=== PATIENT | female | born 1945 | race Caucasian/White ===

== ENCOUNTER → 2018-10-10 | Outpatient (CLI) | payer OTHER ==
[~2018-10-10] MED LIST: BUPR150ER PO; GEMF600 PO; HYDACE5 PO; LOSA50 PO; ONDA8 PO; SIMV10 PO; SIMVASTATIN PO
[2018-10-14 14:08] LABS: HPV 16 Negative (Negative); HPV 18 Negative (Negative); HPV OTHER HR TYPES Negative (Negative)
== END | disposition home or self-care (01) ==
LOC: LAB SHORT 15:44 → LAB 15:44
PROVIDERS: Obstetrics & Gynecology Gynecology
DX: Z12.72 Encounter for screening for malignant neoplasm of vagina (principal)
CPT/HCPCS: 87624; G0123

== ENCOUNTER → 2021-07-26 | Outpatient (CLI) | payer OTHER | END | disposition home or self-care (01) | LOC: LAB SHORT 07:57 | DX: D22.5 Melanocytic nevi of trunk (principal) | CPT/HCPCS: 88305 ==

== ENCOUNTER 2023-04-26 19:51 | Emergency (ER) | payer OTHER ==
[~2023-04-26] VITALS: Ht 157.5 cm; Wt 74.8 kg
[2023-04-27] MEDS ORDERED: Lopressor 25 mg25 MG PO (01:50)
[2023-04-27] MEDS ORDERED: OXYC5 PO (01:50)
[2023-04-27 02:00] VITALS: BP 123/103
== END 2023-04-27 02:13 | disposition home or self-care (01) ==
LOC: ER 19:51
DX: M84.421A Pathological fracture, right humerus, initial encounter for fracture (principal); I48.20 Chronic atrial fibrillation, unspecified; M85.621 Other cyst of bone, right upper arm; Z79.899 Other long term (current) drug therapy
CPT/HCPCS: 73060; 93005; 93010; 99283-25; A9270

== ENCOUNTER → 2023-05-22 | Outpatient (CLI) | payer OTHER ==
[~2023-05-22] MED LIST changes: +DILT180 PO; +Lopressor 25 mg25 MG PO; +METO25 PO; +MULVITA PO; +OMEP20ER PO; +OXYC5 PO; +ROSU5 PO; +Vitamin D1000 UNI1 PO
[2023-05-22 17:16] LABS: Creatinine, Urine Random 83.4 mg/dL (27.00-270.00); Microalbumin, Random Urine 56.5 mg/L (0.000-20.000)
== END | disposition home or self-care (01) ==
LOC: LAB 12:55 → LAB SHORT 12:55
PROVIDERS: Physician Assistant
DX: E11.69 Type 2 diabetes mellitus with other specified complication (principal); E11.59 Type 2 diabetes mellitus with other circulatory complications
CPT/HCPCS: 82043; 82570

== ENCOUNTER 2023-05-24 12:45 | Day surgery (SDC) | payer OTHER ==
[~2023-05-24] VITALS: Ht 157.5 cm; Wt 78.3 kg
[2023-05-24] VITALS (34 sets, daily range): BP systolic 103–158; BP diastolic 66–112
--- NOTE | 2023-05-24 13:57 | NUR ---
Arrived to day surgery via . History, Chart, Medications and Allergies reviewed before start of procedure. Patient confirms NPO status and agrees with scheduled surgery. Patient States Post-Procedure ride home has been arranged. Pre-Op teaching done. Pt verbalizes understanding.
--- NOTE | 2023-05-24 14:22 | NUR ---
05/24/23 1422 Giovanny Rivas HISTORY,CHART, MEDICATIONS AND ALLERGIES REVIEWED BEFORE START OF PROCEDURE. PATIENT CONFIRMS NPO STATUS AND AGREES WITH SCHEDULED PROCEDURE. 3-LEAD EKG REVIEWED WITH PHYSICIAN PRIOR TO START OF PROCEDURE. MONITOR INTACT WITH CONTINUOUS PULSE OXIMETRY, 3-LEAD EKG, CAPNOGRAPHY AND INTERMITTENT BP. SUPPLEMENTAL O2 TO BE TITRATED THROUGHOUT PROCEDURE TO MAINTAIN O2 SATURATION ABOVE 90%. PATIENT DETERMINED TO BE ASA APPROPRIATE FOR MODERATE SEDATION PRIOR TO START OF PROCEDURE BY DR. HART.
--- NOTE | 2023-05-24 17:06 | NUR ---
Patient up SBA to wheelchair. Discharge instructions reviewed with patient. Patient verbalizes understanding. Copy given to patient to take home. Patient States Post-Procedure ride home has been arranged. Discharged via wheelchair to private car for ride home.
== END 2023-05-24 23:39 | disposition home or self-care (01) ==
LOC: ORSCMMR 12:45 → ORD 14:00 → ORSCMMR 23:39
PROVIDERS: Student in an Organized Health Care Education/Training Program
PROC: 0B9G8ZX Drainage of Left Upper Lung Lobe, Via Natural or Artificial Opening Endoscopic, Diagnostic (ICD-10-PCS; principal; 2023-05-24 14:00)
PROC: 0BD88ZX Extraction of Left Upper Lobe Bronchus, Via Natural or Artificial Opening Endoscopic, Diagnostic (ICD-10-PCS; principal; 2023-05-24 14:00)
DX: C34.12 Malignant neoplasm of upper lobe, left bronchus or lung (principal); Z87.891 Personal history of nicotine dependence; I48.91 Unspecified atrial fibrillation; K21.9 Gastro-esophageal reflux disease without esophagitis; I10 Essential (primary) hypertension; E78.5 Hyperlipidemia, unspecified; R73.03 Prediabetes; Z79.899 Other long term (current) drug therapy
CPT/HCPCS: 88108; 88305; 88341; 88342; A9270; J0171; J2001; J2250; J3010; J7120

== ENCOUNTER → 2023-05-30 | Outpatient (CLI) | payer OTHER ==
[2023-05-30 20:01] LABS: Creatinine, Urine Random 79.2 mg/dL (27.00-270.00); Microalbumin, Random Urine 49.4 mg/L (0.000-20.000)
== END | disposition home or self-care (01) ==
LOC: LAB 13:51 → LAB SHORT 13:51
PROVIDERS: Physician Assistant
DX: E11.69 Type 2 diabetes mellitus with other specified complication (principal); E11.59 Type 2 diabetes mellitus with other circulatory complications
CPT/HCPCS: 82043; 82570

== ENCOUNTER 2023-06-14 10:17 | Emergency (ER) | payer OTHER ==
[~2023-06-14] VITALS: Ht 157.5 cm; Wt 72.1 kg
[2023-06-14 10:31] VITALS: BP 140/102
[2023-06-17] MEDS ORDERED: OXYC5 (07:59)
== END 2023-06-14 12:33 | disposition home or self-care (01) ==
LOC: ER 10:17
DX: M62.838 Other muscle spasm (principal); Z79.899 Other long term (current) drug therapy; E78.5 Hyperlipidemia, unspecified; I10 Essential (primary) hypertension
CPT/HCPCS: 73090; 99283-25; A9270

== ENCOUNTER 2023-06-17 07:12 | Inpatient (IN) | payer OTHER ==
[~2023-06-17] VITALS: Ht 157.5 cm; Wt 73.0 kg
[2023-06-17 07:51] LABS: BASOPHILS ABSOLUTE AUTO 0.01 K/mm3 (0.00-0.23); BASOPHILS PERCENT AUTO 0 % (0-2); EOSINOPHILS ABSOLUTE AUTO 0.01 K/mm3 (0.00-0.68); EOSINOPHILS PERCENT AUTO 0 % (0-6); Hematocrit 31.9 % (33.0-51.0); Hemoglobin 10.3 g/dL (11.5-16.0); IMMATURE GRAN ABSOLUTE AUTO 0.11 K/mm3 (0.00-0.10); IMMATURE GRAN PERCENT AUTO 1 % (0-1); LYMPHOCYTES ABSOLUTE AUTO 0.62 K/mm3 (0.84-5.20); LYMPHOCYTES PERCENT AUTO 3 % (21-46); MONOCYTES ABSOLUTE AUTO 1.37 K/mm3 (0.16-1.47); MONOCYTES PERCENT AUTO 7 % (4-13); Mean Corpuscular HGB 28.1 pg (26.0-34.0); Mean Corpuscular HGB Conc 32.3 g/dL (31.5-36.5); Mean Corpuscular Volume 87 fL (80-100); NEUTROPHILS PERCENT AUTO 89 % (41-73); Platelet Count 553 K/mm3 (150-400); RDW Coefficient Variation 14.6 % (11.7-14.2); Red Blood Cell Count 3.67 M/mm3 (3.80-5.20); White Blood Cell Count 19.02 K/mm3 (4.00-11.30)
[2023-06-17] MEDS ORDERED: OXYC5 PO (07:59)
[2023-06-17] MEDS ORDERED: DEXA4 (07:59)
[2023-06-17] MEDS ORDERED: HYDROCODONE-AC1 EA19 PO (07:59)
[2023-06-17] MEDS ORDERED: FOLI1 PO (07:59)
[2023-06-17] MEDS ORDERED: TIZANIDINE HCL213 PO (08:00)
[2023-06-17] MEDS ORDERED: GEMFIBROZIL600 MG PO (08:01)
[2023-06-17 08:06] LABS: Bun/Creatinine Ratio 39.5 (12.0-20.0); Creatinine, Blood 0.58 mg/dL (0.40-1.00); Potassium, Blood 3.6 mmol/L (3.5-5.5)
[2023-06-17 11:23] VITALS: BP 154/103
[2023-06-17 12:09] LABS: Source, Urine Foley catheter
[2023-06-17 12:12] LABS: Appearance, Urine Hazy (Clear); Bilirubin, Urine Neg (Neg); Blood, Urine 1+ (Neg); Color, Urine Yellow (P-Yellow); Glucose Qualitative, Urine Neg (Neg); Ketones, Urine Neg (Neg); Leukocyte Esterase, Urine 1+ (Neg); Nitrite, Urine Neg (Neg); Protein, Urine 1+ (Neg); Urobilinogen, Urine NORM (Normal)
[2023-06-17 12:29] LABS: Bacteria Many /hpf; Mucus Light (0-Heavy); Squamous Epithelial Cells Not Seen /hpf (Few)
[2023-06-17 13:54] VITALS: BP 161/103
--- NOTE | 2023-06-17 14:29 | NUR ---
CALL FROM [facility] - RELAYING MESSAGE- PT IS BEING RESCHED UNTIL TOMORROW, PT CAN EAT UNTIL MIDNIGHT.
[2023-06-17 14:34] VITALS: BP 165/103
--- NOTE | 2023-06-17 17:36 | NUR ---
SHIFT SUMMARY PT A&OX4, VSS/RA, CHENTE PO, [place] PATENT & DRAINING/STAT LOCK ON/OFF FLOOR, BEDREST, PAIN MANAGED WITH NORCO AND FENT PER EMAR, PLAN FOR NPO MIDNIGHT AND SURGERY TOMORROW FOR BLE. FAMILY BEDSIDE. WILL REPORT TO ONCOMING NOC RN.
--- NOTE | 2023-06-17 18:15 | NUR ---
TELEPHONE CALL TO DR KIRKLAND R/T PT C/O "NEW NUMBNESS IN R KNEE AND FEELING LIKE R FOOT GOING TO SLEEP" SINCE I PUT ON 5 LB BUCKS TRACTION. STATED TO DO 1 HR ON AND THEN OFF 1-2 HOURS, AND TO DISCONTINUE BUCKS IF STILL HAVING SAME COMPLAINTS.
[2023-06-17 19:13] VITALS: BP 157/100
[2023-06-18] VITALS (7 sets, daily range): BP systolic 97–159; BP diastolic 51–104
--- NOTE | 2023-06-18 04:06 | NUR ---
SHIFT SUMMARY PT REMAINS VERY PAINFUL, ESPECIALLY WITH REPOSITIONING. PT HAS DENIED NUMBNESS TO RIGHT FOOT/THIGH WITH 5# BUCKS TRACTION IN PLACE. 25 MCG IV FENTANYL AND 1 NORCO FOR PAIN MANAGEMENT. JASE REMAINS IN BRACE AND SLING. NPO SINCE MIDNIGHT. [place] PATENT WITH YELLOW URINE. CALL LIGHT WITHIN REACH.
[2023-06-18 04:22] LABS: BASOPHILS ABSOLUTE AUTO 0.02 K/mm3 (0.00-0.23); BASOPHILS PERCENT AUTO 0 % (0-2); EOSINOPHILS ABSOLUTE AUTO 0.01 K/mm3 (0.00-0.68); EOSINOPHILS PERCENT AUTO 0 % (0-6); Hemoglobin 11.2 g/dL (11.5-16.0); IMMATURE GRAN ABSOLUTE AUTO 0.13 K/mm3 (0.00-0.10); IMMATURE GRAN PERCENT AUTO 1 % (0-1); LYMPHOCYTES ABSOLUTE AUTO 0.81 K/mm3 (0.84-5.20); LYMPHOCYTES PERCENT AUTO 4 % (21-46); MONOCYTES ABSOLUTE AUTO 1.59 K/mm3 (0.16-1.47); MONOCYTES PERCENT AUTO 8 % (4-13); Mean Corpuscular Volume 88 fL (80-100); Mean Platelet Volume 9.4 fL (9.1-12.4); NEUTROPHILS PERCENT AUTO 87 % (41-73); Platelet Count 508 K/mm3 (150-400); RDW Coefficient Variation 14.4 % (11.7-14.2); RDW Standard Deviation 46.1 fL (35.1-46.3); White Blood Cell Count 19.76 K/mm3 (4.00-11.30)
[2023-06-18 04:46] LABS: Albumin, Blood 2.8 g/dL (3.4-5.0); Albumin/Globulin Ratio 0.8 (0.8-1.8); Bilirubin, Total 0.6 mg/dL (0.1-1.0); Bun/Creatinine Ratio 22.4 (12.0-20.0); Calcium, Blood 8.5 mg/dL (8.5-10.1); Creatinine, Blood 0.67 mg/dL (0.40-1.00); Globulin, Blood 3.3 g/dL (2.2-4.0); Potassium, Blood 3.3 mmol/L (3.5-5.5); Total Protein, Blood 6.1 g/dL (6.4-8.2)
--- NOTE | 2023-06-18 18:00 | NUR ---
[facility]/INTERNAL FIXATION RIGHT FEMUR. PLAN OF CARE DISCUSSED WITH PT.
--- NOTE | 2023-06-18 18:25 | NUR ---
PT TO DAY SURGERY WITH 22G IV IN LEFT AC
--- NOTE | 2023-06-18 18:49 | NUR ---
REPORT OFF TO Joseph SKINNER RN
--- NOTE | 2023-06-18 19:51 | NUR ---
SHIFT SUMMARY PT A&OX4, VSS/RA, PAIN TREATED PER EMAR, NPO T/O SHIFT, RLE FX IN 5# BUCKS TRACTION/PT DENIED N&T, PADMINI PATENT & DRAINING/STAT LOCK ON/OFF FLOOR. PT IN O.R. REPORT TO MIREYA ADAMES.
--- NOTE | 2023-06-18 23:20 | NUR ---
PT PERSONAL BELONGINGS INCLUDING PURSE, GLASSES, AND RING BROUGHT TO ICU11.
[2023-06-19] VITALS (64 sets, daily range): BP systolic 75–149; BP diastolic 28–134
[2023-06-19 00:53] LABS: Bun/Creatinine Ratio 29.1 (12.0-20.0); Creatinine, Blood 0.65 mg/dL (0.40-1.00); Magnesium, Blood 1.9 mg/dL (1.6-2.4); Potassium, Blood 4.1 mmol/L (3.5-5.5)
--- NOTE | 2023-06-19 01:06 | NUR ---
ASSUMED CARE PT ARRIVED ON UNIT A&O X0; DR CARMONA AND OR NURSE AT BEDSIDE. PT QUICKLY BECAME MORE ORIENTED; IS CURRENTLY A&O TO SELF ONLY. PT NEEDS REPEATED REORIENTATION ON PT'S CURRENT SITUATION AND TO NOT PULL AT LINES/CHORDS. PT ALSO ARRIVED ON UNIT IN AFIB RVR W/ RATE IN THE 150-180'S ON A CARDIZEM GTT. CARDIZEM TITRATED UP TO 15MG/HR; DID NOT APPEAR TO BE EFFECTIVE. DR CARMONA AT BEDSIDE TRIALED ESMOLOL AND STATED THAT HE WOULD LIKE THIS RN TO TALK TO HOSPITALIST AND GET ORDER FOR ESMOLOL GTT. ESMOLOL GTT APPEARS TO BE MORE EFFECTIVE. BILATERAL SURGICAL BANDAGES ARE C/D/I. SPO2 >92% ON 7L NC;RR >12; MAP >65; AFIB RATE IN THE 110-130'S AT TIME OF THIS NOTE.
--- NOTE | 2023-06-19 01:38 | NUR ---
UPDATE PT DENIES PAIN IN RIGHT ARM WHEN AT REST.
[2023-06-19 04:02] LABS: BASOPHILS ABSOLUTE AUTO 0.03 K/mm3 (0.00-0.23); BASOPHILS PERCENT AUTO 0 % (0-2); EOSINOPHILS PERCENT AUTO 0 % (0-6); Hematocrit 29.8 % (33.0-51.0); Hemoglobin 9.4 g/dL (11.5-16.0); IMMATURE GRAN PERCENT AUTO 1 % (0-1); LYMPHOCYTES ABSOLUTE AUTO 0.31 K/mm3 (0.84-5.20); LYMPHOCYTES PERCENT AUTO 1 % (21-46); MONOCYTES PERCENT AUTO 5 % (4-13); Mean Corpuscular HGB 27.8 pg (26.0-34.0); Mean Corpuscular HGB Conc 31.5 g/dL (31.5-36.5); Mean Corpuscular Volume 88 fL (80-100); Mean Platelet Volume 9.4 fL (9.1-12.4); NEUTROPHILS ABSOLUTE AUTO 21.47 K/mm3 (1.96-9.15); NEUTROPHILS PERCENT AUTO 93 % (41-73); Platelet Count 344 K/mm3 (150-400); RDW Coefficient Variation 14.8 % (11.7-14.2); RDW Standard Deviation 47.8 fL (35.1-46.3); Red Blood Cell Count 3.38 M/mm3 (3.80-5.20); White Blood Cell Count 23.21 K/mm3 (4.00-11.30)
[2023-06-19 04:26] LABS: Bun/Creatinine Ratio 30.8 (12.0-20.0); Calcium, Blood 7.7 mg/dL (8.5-10.1); Creatinine, Blood 0.75 mg/dL (0.40-1.00); Magnesium, Blood 1.9 mg/dL (1.6-2.4); Potassium, Blood 4.9 mmol/L (3.5-5.5)
--- NOTE | 2023-06-19 06:23 | NUR ---
SHIFT SUMMARY PT IS A&O TO SELF, SITUATION,YEAR, AND TOWN ([place]). PT THOUGHT SHE WAS IN THE KITCHEN, BUT WAS ABLE TO STATE THAT SHE WAS IN THE HOSPITAL FOR "SOMETHING WITH MY LEG THAT NEEDED SURGERY" WHEN REORIENTING PT THAT SHE WAS IN THE HOSPITAL. PT CURRENTLY DENIES PAIN AND IS RESTING QUIETLY IN BED. DRINKING WATER FINE W/ NO APPARENT ISSUES (COUGHING, ETC.). ESMOLOL INFUSING. MAP >65; AFIB RATE IN THE 100-120'S; SPO2 >92% ON 6L NC. DR MORENO CALLED W/ ORDERS TO JUST MONITOR AND BE CAREFUL W/ PT'S RIGHT ARM. NO NEW ORDERS OR PLANS TO RE-ALIGN RIGHT HUMERUS SINCE IT IS NOT CAUSING PT PAIN. WILL NOTIFY DAYSHIFT NURSE. NO OTHER ACUTE EVENTS TONIGHT.
--- NOTE | 2023-06-19 09:18 | NUR ---
CARE OF PT ASSUMED AT 0700. PT AWAKE, ALERT WITH SOME MILD CONFUSION/FORGETFULNESS. PT IRRITABLE AT TIMES AND SHORT WITH HER D/T UNCONTROLLED PAIN ISSUES. PT C/O INTERMITTENT STABBING PAIN TO RIGHT ARM 05/07. PT C/O INTERMIT. PAIN TO RIGHT THIGH AND LEFT LE. PT MEDICATED WITH FENTANYL 25MCG INITIALLY W/O RELIEF. 0.5MG OF DILAUDID GIVEN WITH GOOD PAIN RELIEF. RIGHT ARM SLING REPOSITIONED FOR COMFORT. PT INITIALLY ON ESMOLOL GTT AT 200MCG, GTT HAS BEEN TITRATED DOWN TO 150MCG, PT AFIB W RATE 110-120. SOME HYPOTENSION NOTED W MAPS >65. DRSG'S TO RIGHT AND LEFT LEG C/D/I. RIGHT LEG WITH MORE SWELLING THAN LEFT. GOOD CAP REFILL TO BLE W +1 PULSES TO DP BILAT. SATS >90% ON 2L VIA N/C. PALIATIVE CARE TO SEE PT TODAY. PT'S IN THIS AM AND UPDATED.
--- NOTE | 2023-06-19 10:25 | NUR ---
DR BERGMAN IN TO SEE PT. ATTEMPTING TO TITRATE ESMOLOL GTT OFF, OKAY TO GIVE TOPROL XL PER DR BERGMAN. ESMOLOL TITRATED DOWN TO TO 25MCG. PASTORAL CARE IN TO SEE PT.
--- NOTE | 2023-06-19 10:42 | NUR ---
Spiritual Care Visit | Pt. Request Pt. is resting in bed but responds when I enter the room. Pt. is pleasant yet displays ocassional moments of confusion. Facilitate a life review. Pt. verbalizes that her NOK is a "Life Partner". Pt. displays evidence of spiritual guilt and some anxiety because of her life choices. Listen with empathy and a calming presence. Eucharistic Volunteer comes to bedside and offers additional spiritual support. Pt. verbalized interest in seeing a Positive Printer Operator. Had E.V. pray for Pt. Pt. verbalized gratitude for the spiritual care visit(s). Will continue to monitor and give support to Pt. and LP.
--- NOTE | 2023-06-19 12:28 | NUR ---
Assumed care of patient at approximately 1100. Pt resting in bed, alert and oriented to self/date, forgetful of place/events. Physical assessment unchanged from shift assessment. No acute needs. Will continue to monitor.
--- NOTE | 2023-06-19 14:25 | NUR ---
Comfort care orders placed per phone call with Dr. Rasmussen. Care discussed with Primary RN Arturo.
--- NOTE | 2023-06-19 14:37 | NUR ---
Pt resting in bed upon arrival. Pt's spouse Link at bedside. Pt intermittently grimacing in pain and reports pain in her right arm. Engaged in therapeutic discussion regarding goals of care. Listened as spouse and Pt report plan was for hospice prior to this hospital stay. Pt and spouse report they are still in agreement with hospice services upon D/C but instead of Pt going home the plan is for Pt to be placed in [facility] facility. Discussed considering comfort care and educated on comfort care philosophy. Pt and spouse discuss further and are agreeable with implementing comfort care. Discussed case with Dr Lal and he is in agreement with comfort care plan. Discussed case with Primary RN Arturo and discussed case. Palliative Care will remain available
--- NOTE | 2023-06-19 18:18 | NUR ---
Pt transferred to 304 at 1800. Report given to RN assuming care. Pt on 02 via NC at 4 L/min. All personal belongings sent with pt. accompanied pt upstairs. No acute needs at time of transfer.
--- NOTE | 2023-06-19 20:05 | NUR ---
SHIFT SUMMARY- PT TRANSFERED TO MEDICAL FLOOR FROM ICU ON COMFORT CARE. PAIN APPEARS TO BE WELL MANAGED AT THE TIME OF PT ARRIVAL THROUGH TO THE TIME OF BEDSIDE REPORT. AFTER REPORT THE PT STARTED HAVING SIGNS OF PAIN NIGHT RN OT MEDICATE.
--- NOTE | 2023-06-21 04:37 | NUR ---
SHIFT SUMMARY ADMITTED FOR FEMUR FRACTURE. DNR. COMFORT CARE. PLAN IS FOR DC TO [facility]. SCHEDULED PAIN MEDICATION GIVEN THIS SHIFT, ANXIETY MEDICATION GIVEN THIS SHIFT. SHE IS ON BEDREST. 4 LPM O2 VIA NC. POWERGLIDE IN LUE. HX: OF LUNG CANCER W/METS TO BONE. NO NEW CONCERNS.
[2023-06-21 10:48] LABS: Influenza A, PCR NEGATIVE (NEGATIVE); Influenza B, PCR NEGATIVE (NEGATIVE); Resp Syncytial Virus, PCR NEGATIVE (NEGATIVE); SARS-Cov-2 (COVID-19) PCR, MMC NEGATIVE (NEGATIVE)
[2023-06-21] MEDS ORDERED: Ativan1 MG PO (11:27)
[2023-06-21] MEDS ORDERED: DOCUZEN 8.6-501 EACH PO (11:27)
[2023-06-21] MEDS ORDERED: DEXA2 PO (11:27)
[2023-06-21] MEDS ORDERED: MORP20L PO (11:28)
--- NOTE | 2023-06-21 12:42 | NUR ---
SHIFT/DISCHARGE SUMMARY: PATIENT IS AWAKE, ALERT AND ORIENTED TO SELF AND PLACED. PATIENT ON CC MEASURES. PATIENT ON 4L OF O2 VIA NC. RR IS EVEN AND UNLABORED. RECEIVED SCHEDULED MEDS PER EMAR. [place], PATENT DRAINING JORDIN COLOR TO GARVITY c A TOTAL URINE OUT OF 500 MLS. NOTED DRESSING TO BILAT THIGH C/D/I, R ARM BRACE STABILIZER AND SLING PLACED. REPOSITIONED AND ORAL CARE DONE. POWERGLIDE TO IVELISSE MATHIAS. PATIENT DISCHARGE TO [facility] c HOSPICE CARE THROUGH [employer]. DISCHARGE INSTRUCTIONS PACKET WAS FAXED BY [facility] RN TO [facility] THIS AM. DISCHARGE PACKET GIVEN TO [facility]. ALL PATIENT PERSONAL BELONGINGS WERE SENT c THE PATIENT. PATIENT LEFT THE ROOM AT AROUND 1210 AND WAS TRANSPORTED VIA GURNEY BY [facility] TO [facility]. REPORTS GIVEN VIA TELEPHONE TO NURSE KAY AT [facility] AT AROUND 1230.
== END 2023-06-21 12:28 | DRG 481 ==
LOC: ER 07:12 → SURS 08:47 → ICUE 06-18 23:00 → MEDS 06-19 18:06 → ENPENDDIS 06-21 10:25 → MEDS 06-21 12:28
PROVIDERS: Emergency Medicine; Internal Medicine; Orthopaedic Surgery; ADMIT Internal Medicine
PROC: 0QS604Z Reposition Right Upper Femur with Internal Fixation Device, Open Approach (ICD-10-PCS; principal; 2023-06-18 16:30)
DX: M84.451A Pathological fracture, right femur, initial encounter for fracture (principal); C34.12 Malignant neoplasm of upper lobe, left bronchus or lung; C79.51 Secondary malignant neoplasm of bone; W18.30XA Fall on same level, unspecified, initial encounter; E78.1 Pure hyperglyceridemia; F32.9 Major depressive disorder, single episode, unspecified; Z51.5 Encounter for palliative care; Z66 Do not resuscitate; F17.211 Nicotine dependence, cigarettes, in remission; E11.9 Type 2 diabetes mellitus without complications; K21.9 Gastro-esophageal reflux disease without esophagitis; I10 Essential (primary) hypertension; I48.91 Unspecified atrial fibrillation; K59.00 Constipation, unspecified; Z79.899 Other long term (current) drug therapy; Z90.710 Acquired absence of both cervix and uterus; Z90.89 Acquired absence of other organs; Z98.42 Cataract extraction status, left eye; Z98.41 Cataract extraction status, right eye; Z79.891 Long term (current) use of opiate analgesic
CPT/HCPCS: 0241U; 36415; 51702; 73060; 73552; 80048; 80053; 81001; 83735; 85025; 87077; 87086; 87186; 96374-59; 97110; 97161; 97530; 99285-25; A9270; C1713; C1751; C1769; J0690; J1100; J1170; J1650; J2371; J2405; J2704; J3010; J3370; J3480; J7120